=== PATIENT | female | born 1980 | race African-American/Black ===

== ENCOUNTER 2020-07-14 02:12 | Inpatient (IN) ==
[2020-07-14 02:20] VITALS: BMI 38.0
[2020-07-14 02:37] LABS: AMNISURE ROM TEST NO MEMBRANES RUPTURE (NO RUPTURE)
[2020-07-14] MEDS ORDERED: NS 100 ML IV 100 ML IV ONE ×2 (02:59→07:44)
[2020-07-14] MEDS ORDERED: AMPICILLIN VIAL 2 GRAM ONE (02:59)
[2020-07-14] MEDS ORDERED: D5 1/2 NS 1000 ML 1,000 ML IV ONE (02:59)
[2020-07-14] MEDS ORDERED: LR 1000 ML IV 1,000 ML IV ONE (03:13)
[2020-07-14] MEDS ORDERED: BETADINE SOLN ONE (03:30)
[2020-07-14] MEDS ORDERED: PITOCIN ONE (03:30)
[2020-07-14] MEDS ORDERED: D5 1/2 NS 1L W PITOCIN 20 UNITS/L 20 UNITS/1,000 ML BAG IV ONE (03:30)
[2020-07-14 03:47] LABS: BASOPHILS % (AUTO) 0.2 % (0.2-1.0); EOSINOPHILS # (AUTO) 0.1 x10^3/uL (0.0-0.2); EOSINOPHILS % (AUTO) 0.5 % (0.9-2.9); HEMATOCRIT 33.6 % (36.0-47.0); HEMOGLOBIN 10.4 g/dL (12.0-16.0); LYMPHOCYTES # (AUTO) 2.1 X10^3/uL (1.3-2.9); LYMPHOCYTES % (AUTO) 18.7 % (21.0-51.0); MEAN CORPUSCULAR HEMOGLOBIN 21.6 pg (27.0-34.0); MEAN CORPUSCULAR VOLUME 69.6 fL (80.0-100.0); MEAN PLATELET VOLUME 10.4 fL (7.4-11.0); MONOCYTES # (AUTO) 0.9 x10^3/uL (0.3-0.8); MONOCYTES % (AUTO) 8.6 % (0.0-13.0); NEUTROPHILS # (AUTO) 7.9 x10^3/uL (2.2-4.8); PLATELET COUNT 161 X10^3/uL (150.0-450.0); RED BLOOD COUNT 4.82 X10^6/uL (3.5-5.4); RED CELL DISTRIBUTION WIDTH 15.4 % (11.6-16.5)
[2020-07-14 03:48] LABS: ALANINE AMINOTRANSFERASE 11 Units/L (12-78); ALBUMIN 2.9 g/dL (3.4-5.0); ALKALINE PHOSPHATASE 129 Units/L (46-116); ASPARTATE AMINO TRANSFERASE 19 Units/L (15-37); BLOOD UREA NITROGEN 8 mg/dL (7-18); CALCIUM 9.8 mg/dL (8.5-10.1); CARBON DIOXIDE 22.6 mmol/L (21-32); CHLORIDE 103 mmol/L (98-107); COR CA(FOR HYPOALB) 10.7 mg/dL (8.5-10.1); CREATININE 0.79 mg/dL (0.55-1.02); SODIUM 136 mmol/L (136-145); TOTAL PROTEIN 7.1 g/dL (6.4-8.2); eGFR NON BLACK RACES > 60 (>60)
[2020-07-14 04:05] LABS: MICROCYTOSIS 1+; PLATELET MORPHOLOGY COMMENT NORMAL (NORMAL)
--- NOTE | 2020-07-14 04:08 | DR.OB ---
OB Quick Note - Assessment/Plan Assessment/Plan: L&D 07/14/20 at 4:00am S-No complaint except CTX. O-Afebrile,VSS FYJ=[id number] with good LTV, +accel, no decel. CTX=q 2-3 min., strong by palpation CVX=4cm/75%/-1/VTX AROM with clear fluid. IUPC and FSE placed. A-IUP at 39 0/7 weeks in labor +GBS AMA anemia P-Begin pitocin augmentation as needed F/U labs ABX in labor for +GBS Anticipate
[2020-07-14] MEDS ORDERED: STADOL INJ ONE (04:12)
[2020-07-14] MEDS ORDERED: PITOCIN IVP ONE (04:28)
[2020-07-14] MEDS ORDERED: D5LR 1L W PITOCIN 10 UNITS/L 10 UNITS/1,000 ML BAG IV PRN (04:28)
[2020-07-14] MEDS ORDERED: PHENERGAN INJ 25 MG IM PRN ×2 (04:28→11:53)
[2020-07-14] MEDS ORDERED: REGLAN INJ 10 MG VIAL IVP PRN (04:28)
[2020-07-14] MEDS ORDERED: STADOL INJ IVP PRN (04:31)
[2020-07-14 04:47] LABS: BILIRUBIN,URINE NEGATIVE (NEGATIVE); BLOOD/HEMOGLOBIN,URINE 1+ (NEGATIVE); GLUCOSE, URINE NEGATIVE (NEGATIVE); KETONES,URINE 1+ (NEGATIVE); LEUKOCYTE ESTERASE ,URINE NEGATIVE (NEGATIVE); NITRITES,URINE NEGATIVE (NEGATIVE); PROTEIN,URINE 3+ (NEGATIVE); UROBILINOGEN,URINE NORMAL (NORMAL)
[2020-07-14 04:51] LABS: APPEARANCE,URINE CLEAR (CLEAR); COLOR,URINE YELLOW (YELLOW); RBC,URINE 0-2 /HPF (0-3)
[2020-07-14 04:52] LABS: BACTERIA,URINE NEGATIVE /HPF (NEGATIVE); MUCUS,URINE RARE /HPF (NEGATIVE); SQUAMOUS EPITHELIAL CELL,UR FEW /HPF (NEGATIVE); TRANSITIONAL EPI CELLS,URINE RARE /HPF (NEGATIVE)
[2020-07-14] MEDS ORDERED: D5 1/2 NS 1000 ML 1,000 ML IV SCH (05:00)
[2020-07-14] MEDS ORDERED: AMPICILLIN VIAL 2 GRAM 2 G in NS 100 ML IV + SPIKE MINIBAG* 100 ML IV SCH (05:00)
[2020-07-14] MEDS: D5LR 1L W PITOCIN 10 UNITS/L 10 UNITS/1,000 ML BAG IV ONE (05:36)
[2020-07-14] MEDS ORDERED: FENTANYL INJ 100 mcg ONE (06:18)
[2020-07-14] MEDS ORDERED: NAROPIN EPIDURAL 0.2% 100 ML ONE (06:19)
[2020-07-14] MEDS ORDERED: AMPICILLIN VIAL 1 GRAM ONE (07:44)
[2020-07-14] MEDS ORDERED: MOTRIN TAB 800 MG PO PRN (11:53)
--- NOTE | 2020-07-14 11:53 | DR.OB ---
OB Quick Note - Assessment/Plan Assessment/Plan: Delivery Note [employer] 07/14/20 at 11:45am Patient complete and pushing. Head delivered over intact perineum. Nose and mouth bulb suctioned. No nuchal cord. Body delivered over intact perineum. Cord clamped x 2 and cut. handed to attendant. Cord sent for gases. Placenta delivered spontaneously / intact / 3 vessel cord. No CVX / vaginal / perineal tears noted. Viable male , VTX/OA, wt=8'0" and 9/10, stable to NBN. Mother stable to RR. [id number].
[2020-07-14] MEDS: D5 1/2 NS 1000 ML 1,000 ML with PITOCIN 20 UNITS IV SCH ×4 (12:30→20:08)
[2020-07-14] MEDS ORDERED: MILK OF MAGNESIA PO PRN (13:11)
[2020-07-14] MEDS ORDERED: AMBIEN PO PRN (13:11)
[2020-07-14] MEDS ORDERED: ADACEL or BOOSTRIX TDaP VACCINE IM ONE (13:11)
[2020-07-14] MEDS ORDERED: DERMOPLAST PAIN RELIEF SPRAY TOP PRN (13:11)
[2020-07-14] MEDS: FERROUS GLUCONATE PO SCH (18:18)
[2020-07-15] MEDS: D5 1/2 NS 1000 ML 1,000 ML with PITOCIN 20 UNITS IV SCH ×4 (04:36→12:33)
[2020-07-15] MEDS ORDERED: MOTRIN TAB 800 MG PO ONE (05:48)
[2020-07-15 06:17] LABS: HEMATOCRIT 27.3 % (36.0-47.0); HEMOGLOBIN 8.6 g/dL (12.0-16.0)
[2020-07-15] MEDS ORDERED: PRENATAL PLUS PO SCH (09:00)
[2020-07-15] MEDS: FERROUS GLUCONATE PO SCH (10:50)
[2020-07-15 14:45] VITALS: BP 132/72
== END 2020-07-15 16:30 | disposition home or self-care (01) | DRG 807 ==
LOC: ER 02:13 → LD 03:30 → OBS 13:56
PROVIDERS: ADMIT Specialist; ATTEND Specialist
DX: O99.824 Streptococcus B carrier state complicating childbirth; Z37.0 Single live birth; Z3A.39 39 weeks gestation of pregnancy; O99.02 Anemia complicating childbirth